=== PATIENT | female | born 1955 | race Caucasian/White ===

== ENCOUNTER → 2021-06-20 | Outpatient (CLI) | payer BC | LOC: EMI 14:12 | DX: M54.16 Radiculopathy, lumbar region (principal); G35 Multiple sclerosis; M51.36 Other intervertebral disc degeneration, lumbar region | CPT/HCPCS: 70551; 72148 ==

== ENCOUNTER → 2021-11-20 | Outpatient (CLI) | payer BC ==
[2021-11-20 06:18] LABS: HEMOGLOBIN 13.5 gm/dl (12.3-15.3); RED BLOOD COUNT 4.53 M/UL (4.00-5.10); WHITE BLOOD COUNT 4.6 K/UL (4.5-11.0)
[2021-11-21 10:13] LABS: A/G RATIO 1.6 (1.2-2.2); ALKALINE PHOSPHATASE, S 87 IU/L (44-121); ALT (SGPT) 16 IU/L (0-32); AST (SGOT) 20 IU/L (0-40); BILIRUBIN, TOTAL 0.4 mg/dL (0.0-1.2); BUN 13 mg/dL (8-27); BUN/CREATININE RATIO 22 (12-28); CALCIUM, SERUM 9.1 mg/dL (8.7-10.3); CARBON DIOXIDE, TOTAL 19 mmol/L (20-29); CHLORIDE, SERUM 105 mmol/L (96-106); CHOLESTEROL, TOTAL 165 mg/dL (100-199); EGFR IF AFRICN AM 111 (>59); EGFR IF NONAFRICN AM 97 (>59); GLOBULIN, TOTAL 2.5 g/dL (1.5-4.5); GLUCOSE, SERUM 85 mg/dL (65-99); HDL CHOLESTEROL 60 mg/dL (>39); LDL CHOLESTEROL CALC 89 mg/dL (0-99); LDL/HDL RATIO 1.5 ratio (0.0-3.2); POTASSIUM, SERUM 4.4 mmol/L (3.5-5.2); PROTEIN, TOTAL, SERUM 6.6 g/dL (6.0-8.5); SODIUM, SERUM 140 mmol/L (134-144); T. CHOL/HDL RATIO 2.8 ratio (0.0-4.4); TRIGLYCERIDES 89 mg/dL (0-149); VITAMIN D, 25-HYDROXY 32.2 ng/mL (30.0-100.0)
== END ==
LOC: LAB 05:45
PROVIDERS: Physician Assistant
DX: E78.5 Hyperlipidemia, unspecified (principal); E55.9 Vitamin D deficiency, unspecified; R53.83 Other fatigue
CPT/HCPCS: 36415; 80053; 80061; 82607; 84439; 84443; 85025